=== PATIENT | female | born 1960 | race Two or more races ===

== ENCOUNTER 2022-02-03 19:21 | Emergency (ER) | payer MEDICAID, OTHER ==
[~2022-02-03] VITALS: Ht 152.4 cm; Wt 56.7 kg
[2022-02-03 23:23] VITALS: BP 143/79
== END 2022-02-03 23:29 | disposition home or self-care (01) ==
LOC: ER 19:21
DX: S52.501A Unspecified fracture of the lower end of right radius, initial encounter for closed fracture (principal); I10 Essential (primary) hypertension; E11.9 Type 2 diabetes mellitus without complications; W18.39XA Other fall on same level, initial encounter; Y93.89 Activity, other specified; Y92.89 Other specified places as the place of occurrence of the external cause; Y99.8 Other external cause status
CPT/HCPCS: 29125; 73090; 73110; 73130